=== PATIENT | male | born 1995 | race Caucasian/White ===

== ENCOUNTER 2022-06-16 09:05 | Inpatient (IN) | payer MEDICAID ==
[~2022-06-16] VITALS: Ht 182.9 cm; Wt 63.5 kg
[2022-06-16 09:11] VITALS: BP_SYST 125
--- NOTE | 2022-06-16 09:11 | NUR ---
Patient to ER bed 08 to gown for evaluation. Side rails up. Report given to Amanda ALEXIS .
--- NOTE | 2022-06-16 09:15 | NUR ---
ER at bedside examining patient.
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
--- NOTE | 2022-06-16 09:32 | NUR ---
Pt noted pain 05/12 recently medicated with NOrco 10 mg at 0730 and oxycontin 5 mg at 0830.
--- NOTE | 2022-06-16 09:36 | NUR ---
Pt with radiology bedside x-ray.
--- NOTE | 2022-06-16 10:40 | NUR ---
Dr Lopez, Ortho evaluating patient at bedside
[2022-06-16] MEDS ORDERED: NAFCILLIN SODIUM 1 GM in NS 50 ML IV SCH (11:15)
[2022-06-16 11:30] LABS: BASOPHILS % (AUTO) 0.5 % (0.0-2.0); EOSINOPHILS # (AUTO) 0.2 K/uL (0.0-0.4); EOSINOPHILS % (AUTO) 2.4 % (0.0-4.0); HEMOGLOBIN 11.8 g/dL (14.0-18.0); LYMPHOCYTES # (AUTO) 1.6 K/uL (1.0-5.5); LYMPHOCYTES % (AUTO) 23.2 % (20.5-51.5); MEAN CORPUSCULAR HEMOGLOBIN 28 pg (27-31); MEAN CORPUSCULAR HGB CONC 35 % (32-36); MEAN CORPUSCULAR VOLUME 81 fL (79.0-98.0); MONOCYTES # (AUTO) 0.7 K/uL (0.0-1.0); NEUTROPHILS # (AUTO) 4.3 K/uL (1.8-7.7); NEUTROPHILS % (AUTO) 63.9 % (40.0-70.0); PLATELET COUNT (AUTO) 384 K/uL (130-430); RED CELL DISTRIBUTION WIDTH 13.8 % (9.0-15.0); WHITE BLOOD COUNT (AUTO) 6.8 K/uL (4.8-10.8)
--- NOTE | 2022-06-16 11:31 | NUR ---
COVID SWAB OBTAINED AND SENT TO LAB.
[2022-06-16] MEDS ORDERED: NAFCILLIN SODIUM 1 GM in NS 50 ML IV ONE (11:32)
[2022-06-16 12:07] LABS: CALCIUM 9.5 mg/dL (8.4-11.0); CREATININE 0.65 mg/dL (0.55-1.30)
--- NOTE | 2022-06-16 12:09 | NUR ---
Admit bed requested Patient will be admitted to care of . Admitted to Med Surg unit. Diagnosis Osteomyelitis right ankle Inpatient (Yes or No) y Observation (Yes or No) n Orientation concerns or request close to nursing station (Yes or No) n Covid Status pending On vent or bipap Isolation requirements n Needs a sitter n From Home (Yes or if No enter name of facility) [facility]. Requires Dialysis (Yes or No) n Med Rec Completed (Yes of No) pending
[2022-06-16 12:13] LABS: ALBUMIN 3.2 g/dL (3.4-4.8); C-REACTIVE PROTEIN QUANT 4.5 mg/dL (0-0.5); TOTAL BILIRUBIN 0.2 mg/dL (0.0-1.0)
[2022-06-16 12:30] LABS: INR 1.3 (0.80-1.20); PROTHROMBIN TIME 12.5 SECS (9.5-12.5)
[2022-06-16] MEDS ORDERED: HYDR-3927 PO (13:26)
[2022-06-16] MEDS ORDERED: OXYIR5 PO (13:29)
[2022-06-16] MEDS ORDERED: LAM100 PO (13:31)
[2022-06-16] MEDS ORDERED: NALOXONE HCL 0.4 MG/ML AMP (NARCAN) IVP PRN (14:00)
[2022-06-16] MEDS ORDERED: VANCOMYCIN HCL 1000 MG/VIAL IV ONE (14:56)
[2022-06-16] MEDS ORDERED: VANCOMYCIN HCL 1,000 MG in NS 250 ML IV ONE (15:00)
[2022-06-16 15:59] VITALS: BP_SYST 108
--- NOTE | 2022-06-16 17:42 | NUR ---
Patient will be admitted to care of MED SURG unit. Will go to room 108 C. Belongings list completed. Complete and up to date summary report printed. SBAR report to be given at bedside with opportunity for questions.
[2022-06-16] MEDS: HYDROcodone/ACETAMIN 10-325 MG TAB PO PRN (20:38)
[2022-06-16 20:39] VITALS: BP_SYST 114
[2022-06-16] MEDS: ENOXAPARIN SODIUM 40 MG/0.4 ML SYRINGE SUBCUT SCH (20:39)
[2022-06-16] MEDS ORDERED: ENOXAPARIN SODIUM 40 MG/0.4 ML SYRINGE SUBCUT SCH (21:00)
[2022-06-16] MEDS: oxyCODONE HCL 5 MG TABLET PO PRN (23:12)
[2022-06-16] MEDS: VANCOMYCIN HCL 1,000 MG in NS 250 ML IV SCH (23:13)
[2022-06-17 02:55] VITALS: BP_SYST 108
[2022-06-17] MEDS: oxyCODONE HCL 5 MG TABLET PO PRN ×4 (04:47→20:14)
[2022-06-17] MEDS: VANCOMYCIN HCL 1,000 MG in NS 250 ML IV SCH ×3 (05:05→22:55)
--- NOTE | 2022-06-17 05:47 | NUR ---
Patient is still c/o pain 5/10 on the R foot and bilat wrist one hour after receiving Oxycodone. Patient stated, " Oxycodone is not working this time, maybe because there's a gap of time in getting this medication". Instructed patient that he has Addison also for pain but patient want to wait a little bit before getting the Addison to see if Oxycodone will work.
[2022-06-17] MEDS: HYDROcodone/ACETAMIN 10-325 MG TAB PO PRN ×3 (06:40→18:41)
[2022-06-17 08:00] VITALS: BP_SYST 132
[2022-06-17] MEDS: LamoTRIgine 100 MG TABLET PO SCH (08:52)
--- NOTE | 2022-06-17 11:30 | NUR ---
PT C/O PAIN NOT RELIEVED BY OXYCODONE AND REQUESTED TO DOUBLE DOSE FOR NORCO CALLED AND NOTIFIED,NO ORDER CHANGED FOR PAIN MANAGEMENT PER DR PAYNE REQUESTS.
[2022-06-17 12:00] VITALS: BP_SYST 118
[2022-06-17 16:00] VITALS: BP_SYST 122
--- NOTE | 2022-06-17 16:03 | NUR ---
Referral faxed to [facility] [phone].
[2022-06-17] MEDS: ENOXAPARIN SODIUM 40 MG/0.4 ML SYRINGE SUBCUT SCH (20:14)
[2022-06-17 20:23] VITALS: BP_SYST 132
[2022-06-18] MEDS: HYDROcodone/ACETAMIN 10-325 MG TAB PO PRN ×3 (03:21→21:32)
[2022-06-18] MEDS: VANCOMYCIN HCL 1,000 MG in NS 250 ML IV SCH ×3 (06:50→21:23)
[2022-06-18 08:00] VITALS: BP_SYST 107
[2022-06-18 08:22] LABS: BILIRUBIN,URINE NEGATIVE (NEGATIVE); BLOOD, URINE NEGATIVE (NEGATIVE); CLARITY/URINE CLEAR (CLEAR); COLOR,URINE YELLOW (YELLOW); GLUCOSE,URINE NEGATIVE (NEGATIVE); KETONES,URINE TRACE (NEGATIVE); LEUKOCYTE ESTERASE ,URINE NEGATIVE (NEGATIVE); NITRITE, URINE NEGATIVE (NEGATIVE); PROTEIN URINE NEGATIVE (NEGATIVE); UROBILINOGEN,URINE 0.2 (0.2-1.0)
[2022-06-18] MEDS: oxyCODONE HCL 5 MG TABLET PO PRN ×2 (08:22→13:23)
[2022-06-18] MEDS: LamoTRIgine 100 MG TABLET PO SCH (08:22)
--- NOTE | 2022-06-18 11:07 | NUR ---
CONSULT GI GT REMOVAL KWASI SANON [phone] S/W [facility] OFFICE
--- NOTE | 2022-06-18 12:28 | NUR ---
Received a call from [facility]-they have no beds available for today. The patient is on a wait list, we can check back in a few days for any bed availability. [phone].
[2022-06-18 12:52] VITALS: BP_SYST 104
[2022-06-18] MEDS ORDERED: LR 1,000 ML IV.SOLN IV ONE (17:19)
[2022-06-18] MEDS ORDERED: GLYCOPYRROLATE 0.2 MG/ML VIAL ONE (17:19)
[2022-06-18] MEDS ORDERED: ONDANSETRON HCL 4 MG/2 ML VIAL ONE (17:19)
[2022-06-18] MEDS ORDERED: METOCLOPRAMIDE HCL 10 MG/2 ML VIAL ONE (17:19)
[2022-06-18] MEDS ORDERED: SEVOFLURANE 15 MIN GAS INH ONE (17:19)
[2022-06-18] MEDS ORDERED: PROPOFOL 200MG/ 20ML VIAL (DIPRIVAN) IV ONE (17:19)
[2022-06-18] MEDS ORDERED: KETOROLAC TROMETHAMINE 30 MG VIAL ONE (17:19)
[2022-06-18] MEDS ORDERED: SUCCINYLCHOLINE CHLORIDE 20 MG/ML(QUELICIN) ONE (17:19)
[2022-06-18] MEDS ORDERED: NS IRRIG SOLN 1000 ML IR ONE (17:19)
[2022-06-18] MEDS ORDERED: hydrALAZINE HCL 20 MG/ML VIAL IVP PRN (17:30)
[2022-06-18] MEDS ORDERED: LABETALOL 100 MG/ 20ML VIAL IVP PRN (17:30)
[2022-06-18] MEDS ORDERED: HYDROmorphone 1 MG/ML INJ. CARTRIDGE IM PRN (17:30)
[2022-06-18] MEDS ORDERED: NALOXONE HCL 0.4 MG/ML AMP (NARCAN) IVP PRN (17:30)
[2022-06-18] MEDS ORDERED: HYDROmorphone 1 MG/ML INJ. CARTRIDGE IVP PRN (17:30)
[2022-06-18] MEDS ORDERED: LR 1,000 ML IV SCH (17:30)
[2022-06-18] MEDS ORDERED: KETOROLAC TROMETHAMINE 15 MG VIAL IM ONE (17:30)
[2022-06-18] MEDS ORDERED: HYDROmorphone 1 MG/ML INJ. CARTRIDGE ONE ×2 (17:40→18:03)
[2022-06-18 18:30] VITALS: BP_SYST 116
--- NOTE | 2022-06-18 18:30 | NUR ---
received pt back from PACU,s/p hardwares removal of both arms and right foot with debridement dressing in both arms and right foot dry and intact,IVF continue infusing,IV site left foot patent and intact,A/Ox4,vss,give water upon requests,needs attended,call light & personal items within pt reach,safety maintained.continue to monitor pt.
[2022-06-18 20:00] VITALS: BP_SYST 104
--- NOTE | 2022-06-18 20:00 | NUR ---
Patient alert/oriented x4 , moderate pain incision both hand n feet elevated , with IV fluid infusing well plan of care discussed with patient verbalized understanding.
[2022-06-18] MEDS: ENOXAPARIN SODIUM 40 MG/0.4 ML SYRINGE SUBCUT SCH (21:22)
[2022-06-18] MEDS: ceFAZolin SODIUM 2 GM in D5W 100 ML IV SCH (21:22)
[2022-06-18] MEDS: HYDROmorphone 1 MG/ML INJ. CARTRIDGE IV PRN (23:00)
--- NOTE | 2022-06-18 23:00 | NUR ---
Patient refused for oxycodone and said it does not relieve his pain , IV dialudid given slowly safety and fall precaution initiated.
[2022-06-19 00:19] VITALS: BP_SYST 110
--- NOTE | 2022-06-19 02:45 | NUR ---
PATIENT RESTING: Patient resting quietly. No acute distress noted. able to turn side to side
[2022-06-19] MEDS: oxyCODONE HCL 5 MG TABLET PO PRN (03:38)
[2022-06-19] MEDS: HYDROmorphone 1 MG/ML INJ. CARTRIDGE IV PRN ×5 (05:23→21:55)
[2022-06-19] MEDS: ceFAZolin SODIUM 2 GM in D5W 100 ML IV SCH ×3 (05:24→22:23)
[2022-06-19] MEDS: VANCOMYCIN HCL 1,000 MG in NS 250 ML IV SCH ×3 (05:24→22:37)
[2022-06-19 08:00] VITALS: BP_SYST 115
[2022-06-19] MEDS: LamoTRIgine 100 MG TABLET PO SCH (08:34)
[2022-06-19] MEDS: HYDROcodone/ACETAMIN 10-325 MG TAB PO PRN (08:34)
[2022-06-19 12:00] VITALS: BP_SYST 107
[2022-06-19 16:00] VITALS: BP_SYST 120
--- NOTE | 2022-06-19 19:17 | NUR ---
Report given to security shift manager RN for continuity of care. Patient stable condition.
[2022-06-19 20:00] VITALS: BP_SYST 124
[2022-06-19] MEDS: ENOXAPARIN SODIUM 40 MG/0.4 ML SYRINGE SUBCUT SCH (22:08)
[2022-06-20] MEDS: HYDROmorphone 1 MG/ML INJ. CARTRIDGE IV PRN ×5 (02:32→20:18)
--- NOTE | 2022-06-20 03:04 | NUR ---
CONSULTATION PAGED/CALLED Reason for Consultation: POSSIBLE OSTEOMYELITIS OF UPPER EXTRE Person Who was Notified:NAYAN Consulting Physician: OLIVIER Leadership Intern Specialty: ID Ordering Physician: KM
[2022-06-20] MEDS: ceFAZolin SODIUM 2 GM in D5W 100 ML IV SCH ×3 (06:56→23:52)
--- NOTE | 2022-06-20 07:30 | NUR ---
OPENING NOTE Patient in bed resting with eyes closed, no sign of distress or pain. Patient's right foot and bilateral arms are wrapped in surgical dressing, dressing is clean dry and intact. IV site is clean, dry, and intact. Breathing is nonlabored and even. All needs met at this time and safety checks made.
[2022-06-20 08:00] VITALS: BP_SYST 124
[2022-06-20] MEDS: LamoTRIgine 100 MG TABLET PO SCH (09:00)
[2022-06-20] MEDS: VANCOMYCIN HCL 1,000 MG in NS 250 ML IV SCH ×3 (09:16→23:53)
[2022-06-20] MEDS: HYDROcodone/ACETAMIN 10-325 MG TAB PO PRN (09:20)
[2022-06-20 12:00] VITALS: BP_SYST 126
--- NOTE | 2022-06-20 13:00 | NUR ---
CRITICAL LAB: Laboratory called with critical lab value preliminary MRSA positive for wound culture. Medical record number and patient name verified. Read back of values done. Dr Benson notified of value. No new orders given at this time.
--- NOTE | 2022-06-20 15:00 | NUR ---
WOUND CARE Wound care provided per Dr Davies's orders on the right foot. Patient tolerated well but requested to hold off on wound care for his arm until later in the day. Patient received his cam boot for the right foot, applied to extremity.
[2022-06-20 16:00] VITALS: BP_SYST 125
[2022-06-20 19:30] VITALS: BP_SYST 119
--- NOTE | 2022-06-20 19:45 | NUR ---
OPENING NOTE Received update on patient; he is now on CONTACT ISOLATION positive for MRSA. Patient in bed awake with same lethargic, depressed demeanor as yesterday. He is requesting pain medication Dilaudid which is too early to administer. Will lump patient care together to minimize patient's agitation and hopefully be allowed to change dressing on arms and get lab samples today. Patient states he has all he needs , safety measures in place, call light in hand.
--- NOTE | 2022-06-20 20:16 | NUR ---
CLOSING NOTE Patient in bed resting, no sign of distress. Patient complaining of pain in his right foot and arms bilaterally. Patient educated on when he would be able to receive his next dose of pain medications, verbalized understanding. Patient is waiting to receive his PICC line. Patient has been updated on his plan of care, verbalized understanding. All needs met at this time and safety checks made. Endorsed to shift commander nurse.
[2022-06-20 22:45] VITALS: BP_SYST 113
[2022-06-20] MEDS: ENOXAPARIN SODIUM 40 MG/0.4 ML SYRINGE SUBCUT SCH (23:54)
[2022-06-21] VITALS: BP_SYST 113
[2022-06-21] MEDS: HYDROmorphone 1 MG/ML INJ. CARTRIDGE IV PRN ×4 (01:35→20:45)
[2022-06-21] MEDS: ENOXAPARIN SODIUM 40 MG/0.4 ML SYRINGE SUBCUT SCH (01:36)
[2022-06-21] MEDS: ceFAZolin SODIUM 2 GM in D5W 100 ML IV SCH ×2 (06:54→14:00)
--- NOTE | 2022-06-21 08:57 | NUR ---
Dr. Becker is at nursing station and has been informed that the pt is refusing labs this am as well as cares at times. He has also been notified that pt is deciding if he will accept a PICC or midline. The order is for a PICC and crisis manager Carolina has spoken and educated him. Dr. Becker is requesting Ensure shakes with meals and a message has been left for the relay dispatcher as there is not showing an option in the system. Order will be changed once assisted.
[2022-06-21 09:08] VITALS: BP_SYST 122
[2022-06-21] MEDS: LamoTRIgine 100 MG TABLET PO SCH (09:34)
[2022-06-21] MEDS: oxyCODONE HCL 5 MG TABLET PO PRN (09:40)
[2022-06-21 12:00] VITALS: BP_SYST 117
--- NOTE | 2022-06-21 12:45 | NUR ---
Pt's glucose was checked at 1230 and reading was 67. He has not been taking PO. He is not diabetic but provided 2 fruit juices and lunch arrived. He reported feeling better.
--- NOTE | 2022-06-21 13:27 | NUR ---
Paged Dr. Becker to request change in IV Dilaudid to PO due to no PIV access. Pt scheduled for PICC but warehouse worker 2nd shift stated unclear time of arrival. Pt is a very difficult stick. Attempted PIV x2, unsuccessful.
[2022-06-21] MEDS ORDERED: HYDROmorphone 2 MG TAB PO ONE (13:45)
[2022-06-21] MEDS: VANCOMYCIN HCL 1,000 MG in NS 250 ML IV SCH ×2 (14:00→20:44)
[2022-06-21 16:42] VITALS: BP_SYST 114
[2022-06-21 22:07] VITALS: BP_SYST 117
[2022-06-22] VITALS (7 sets, daily range): BP systolic 107–127
[2022-06-22] MEDS: HYDROmorphone 1 MG/ML INJ. CARTRIDGE IV PRN ×6 (02:06→23:00)
[2022-06-22] MEDS: VANCOMYCIN HCL 1,000 MG in NS 250 ML IV SCH ×3 (05:17→21:38)
--- NOTE | 2022-06-22 06:39 | NUR ---
rn notes patient remains on room air, no sob noted, patient requests dilaudid Q4 hours on the dot. States that hes in pain and that dilaudid is the only thing that can help him. IV abx given. PICC line remains working and is patent.
[2022-06-22] MEDS: LamoTRIgine 100 MG TABLET PO SCH (10:34)
[2022-06-22] MEDS: oxyCODONE HCL 5 MG TABLET PO PRN (11:34)
--- NOTE | 2022-06-22 17:18 | NUR ---
There was a one time order to change pt's dressings x3. He allowed the leg dressing to be changed only on 06/21/22 by car shifter. I have offered to change bilateral arm dressing but again the pt still refuses at this time. I will check back and if not completed on my shift, I will endorse to car shifter.
[2022-06-22] MEDS: ENOXAPARIN SODIUM 40 MG/0.4 ML SYRINGE SUBCUT SCH (21:39)
[2022-06-23] MEDS: HYDROmorphone 1 MG/ML INJ. CARTRIDGE IV PRN ×5 (04:14→23:57)
[2022-06-23] MEDS: VANCOMYCIN HCL 1,000 MG in NS 250 ML IV SCH ×2 (05:36→14:23)
--- NOTE | 2022-06-23 05:39 | NUR ---
Closing notes/Pt refused dressing change Offered to changed pt's arm dressings, but pt refused and states "No, just let me sleep". IV Vanco administered on RAVINDER PICC line. Call light within reach. Safety maintained. To endorse to AM nurse.
[2022-06-23 08:00] VITALS: BP_SYST 122
--- NOTE | 2022-06-23 08:00 | NUR ---
Initial Notes patient is AOx4. No ss of distress noted. Breathing is even and nonlabored, on room air. Vital signs obtained, as documented. Patient states has pain, request Dilaudid. RN made aware. energy technician was unsuccessful in obtained blood draw x2. Safety precautions in place and call light within reach.
[2022-06-23] MEDS: LamoTRIgine 100 MG TABLET PO SCH (09:56)
[2022-06-23 11:43] VITALS: BP_SYST 112
[2022-06-23] MEDS: HYDROcodone/ACETAMIN 10-325 MG TAB PO PRN ×2 (12:40→21:48)
--- NOTE | 2022-06-23 12:40 | NUR ---
Notes Patient stated pain 6/ 10 of right foot. Administered Lugoff. No ss of distress noted. IV patent. Safety precautions in place and call light within reach.
--- NOTE | 2022-06-23 15:08 | NUR ---
Discharge Planning: GINGER faxed pt referral to [facility] [phone] THANHP to follow up Addendum: 06/23/22 at 1559 by Cherelle Norwood DP [facility] [phone] creating a ISO will accept pending auth and creating a ISO room, also can only accommodate IV meds every Q12 or Q24 schedule. GINGER made CM aware.
[2022-06-23 16:28] VITALS: BP_SYST 124
[2022-06-23] MEDS: oxyCODONE HCL 5 MG TABLET PO PRN (16:37)
--- NOTE | 2022-06-23 17:00 | NUR ---
NOTES PATIENT IS RESTING. STABLE . NO SS OF DISTRESS NOTED. PATIENT REQUESTED PAIN MEDICATION. ADMINISTERED. WOUND CARE TX DONE. SAFETY PRECAUTIONS IN PLACE AND CALL LIGHT WITHIN REACH.
--- NOTE | 2022-06-23 19:10 | NUR ---
Closing Notes Patient is eating dinner. No ss of distress noted. Breathing is even and nonlabored, on room air. IV patent. NO SOB noted. No facial grimace noted. All needs met. Patient is stable. Bed locked, alarm on, and at lowest position. Call light within reach.
[2022-06-23 20:00] VITALS: BP_SYST 126
[2022-06-23] MEDS: ENOXAPARIN SODIUM 40 MG/0.4 ML SYRINGE SUBCUT SCH (20:30)
[2022-06-24] VITALS: BP_SYST 124
[2022-06-24] MEDS: HYDROmorphone 1 MG/ML INJ. CARTRIDGE IV PRN ×2 (05:25→10:40)
--- NOTE | 2022-06-24 06:47 | NUR ---
Shift Summary: patient AAOX4. vitals stable. PRN medication given as requested. patient updated on plan of care. patient states he has no questions or concerns at this time. patient informed to use call light if patient needs to get out of bed for any reason. will endorse to oncoming nurse. call light within reach, bed set to low, locked, and alarm on.
[2022-06-24 08:00] VITALS: BP_SYST 111
--- NOTE | 2022-06-24 08:00 | NUR ---
Initial Notes Patient is AOx4. No ss of distress noted. Breathing is even and nonlabored, on room air. No SOB noted. No facial grimace noted. Patient is resting, eyes closed. Vital signs obtained, as documented. Bed locked, alarm on, and at lowest position. Call light within reach.
[2022-06-24] MEDS: HYDROcodone/ACETAMIN 10-325 MG TAB PO PRN (08:56)
[2022-06-24] MEDS: LamoTRIgine 100 MG TABLET PO SCH (08:57)
[2022-06-24 12:00] VITALS: BP_SYST 117
--- NOTE | 2022-06-24 12:00 | NUR ---
Notes Patient is eating lunch. No distress noted. Patient stable. Safety precautions in place and call light within reach.
[2022-06-24] MEDS ORDERED: VANCOMYCIN HCL 1,000 MG in NS 250 ML IV SCH ×2 (12:15→14:00)
--- NOTE | 2022-06-24 13:47 | NUR ---
Discharge Planning: DCP arranged transport with [facility] [phone] time requested 3:30pm-4:00pm faustinaalice immanuel# [id number] to [facility] [phone]. DCP made CM aware dc order needed. Disposition 03
[2022-06-24] MEDS ORDERED: HYDROmorphone 1 MG/ML INJ. CARTRIDGE IV PRN (14:00)
[2022-06-24] MEDS ORDERED: oxyCODONE HCL 5 MG TABLET PO PRN (14:00)
[2022-06-24 14:14] VITALS: BP_SYST 117
--- NOTE | 2022-06-24 15:37 | NUR ---
D/C Patient Patient given medication reconciliation form and D/C instructions. MD spoke to patient earlier about pain medication and care. Patient verbalized understanding. Exit Care offered, patient refused. Patient refused wound care treatment before discharge. Patient discharged via gurney. Patient in stable condition, ID band removed. PICC line in place in place. Dressing clean, dry, and intact. Rx of given. Patient educated on pain management. All belongings sent with patient. Called and gave report to Natalie ALEXIS at [facility]. All paperwork given to transportation.
--- NOTE | 2022-06-24 16:06 | NUR ---
Spoke w/ patient's mother-Rebekah ,[phone]. I advised her to make a f/u appt with the patient's original orthopedic MD and make arrangements for his transportation to the appt. She stated she would make those arrangements.
== END 2022-06-24 15:35 | DRG 314 ==
LOC: SED 09:05 → SMU 12:11
PROVIDERS: ADMIT Family Medicine; ATTEND Family Medicine
PROC: 0PBJ0ZZ Excision of Left Radius, Open Approach (ICD-10-PCS; 2022-06-18)
PROC: 0PBH0ZZ Excision of Right Radius, Open Approach (ICD-10-PCS; 2022-06-18)
PROC: 0SPF0JZ Removal of Synthetic Substitute from Right Ankle Joint, Open Approach (ICD-10-PCS; 2022-06-18)
PROC: 0PP Upper Bones, Removal (ICD-10-PCS; 2022-06-18)
PROC: 0PPHX5Z Removal of External Fixation Device from Right Radius, External Approach (ICD-10-PCS; 2022-06-18)
PROC: 0XP Anatomical Regions, Upper Extremities, Removal (ICD-10-PCS; 2022-06-18)
PROC: 05HY33Z Insertion of Infusion Device into Upper Vein, Percutaneous Approach (ICD-10-PCS; 2022-06-18)
PROC: 0QBL0ZZ Excision of Right Tarsal, Open Approach (ICD-10-PCS; principal; 2022-06-18 15:30)
DX: T84.112A Breakdown (mechanical) of internal fixation device of bone of right forearm, initial encounter (principal); E44.1 Mild protein-calorie malnutrition; R64 Cachexia; R13.10 Dysphagia, unspecified; Z20.822 Contact with and (suspected) exposure to COVID-19; Y83.8 Other surgical procedures as the cause of abnormal reaction of the patient, or of later complication, without mention of misadventure at the time of the procedure; Z93.1 Gastrostomy status; Z79.891 Long term (current) use of opiate analgesic; Z79.899 Other long term (current) drug therapy; Y92.89 Other specified places as the place of occurrence of the external cause
CPT/HCPCS: 36415; 71045; 73090; 76001; 80053; 80202; 81003; 82962; 83605; 85025; 85610-TC; 85730-TC; 86140; 86886; 86900; 86901; 87040; 87070-TC; 87075-TC; 87081; 87186-TC; 88300; 93005; 96365; 99285; C1751; C1769; J0330; J1170; J1650; J1885; J2405; J2704; J2765; J3370; J3490; J7050; J7060; J7120